=== PATIENT | female | born 1965 | race Caucasian/White ===

== ENCOUNTER → 2018-05-16 14:38 | Outpatient (CLI) | payer OTHER, SELFPAY ==
[2018-05-16 15:24] LABS: Add Manual Diff / Slide Review NO; Basophils Percent Auto 0.6 % (0-2); Eosinophils Percent Auto 3.1 % (2-4); Hemoglobin 13.5 g/dL (12.0-16.0); Lymphocytes Percent Auto 21.2 % (25-40); Mean Corpuscular HGB Conc 33.6 % (30-36); Mean Corpuscular Hemoglobin 30.4 PG (26-34); Mean Corpuscular Volume 90.5 fL (80-100); Monocytes Percent Auto 12.5 % (3-14); Neutrophils Absolute Auto 3700 /uL (3000-5900); Neutrophils Percent Auto 62.6 % (50-75); Platelet Count 233 X10^3/uL (150-400); Red Blood Cell Count 4.42 X10^6/uL (4.0-5.2); Red Cell Distribution Width 12.9 % (11.6-14.8); White Blood Cell Count 5.9 X10^3/uL (4.5-11.0)
[2018-05-16 15:27] LABS: INR 1.2 (0.9-1.3); Prothrombin Time 13.2 SECONDS (10.1-12.7)
[2018-05-16 15:53] LABS: Erythrocyte Sedimentation Rate 15 MM/HR (0-20)
[2018-05-16 16:05] LABS: C-Reactive Protein Quant 1.3 mg/dL (<1.0)
== END ==
PROVIDERS: Visit Provider Physician Assistant
DX: M25.50 Pain in unspecified joint (principal); K06.8 Other specified disorders of gingiva and edentulous alveolar ridge
CPT/HCPCS: 36415; 85025; 85610; 85651; 86140

== ENCOUNTER → 2018-05-24 10:11 | Outpatient (CLI) | payer OTHER, SELFPAY ==
[2018-05-24 10:48] LABS: INR 1.2 (0.9-1.3); Prothrombin Time 13.5 SECONDS (10.1-12.7)
[2018-05-24 11:49] LABS: Alanine Aminotransferase 34 IU/L (9-52); Albumin 4.4 g/dL (3.5-5.0); Albumin Globulin Ratio 1.8 (1.0-2.8); Alkaline Phosphatase 111 U/L (38-126); Aspartate Aminotransferase 30 IU/L (14-36); Bilirubin Total 0.7 mg/dL (0.2-1.3); Bilirubin Unconjugated 0.5 mg/dL (0.0-1.1); Globulin 2.5 g/dL (1.7-4.1); HEMOLYSIS < 15 (0-50); Total Protein 6.9 g/dL (6.3-8.2)
[2018-05-27 10:15] LABS: Hepatitis A Antibody IgM NONREACTIVE; Hepatitis Acute Panel Interp 0.04; Hepatitis B Core Antibody IgM NONREACTIVE; Hepatitis B Surface Antigen NONREACTIVE; Hepatitis C Antibody NONREACTIVE
== END ==
PROVIDERS: PCP Family Medicine; Visit Provider Family Medicine
DX: R94.5 Abnormal results of liver function studies (principal); R79.1 Abnormal coagulation profile
CPT/HCPCS: 36415; 80074; 80076; 85610

== ENCOUNTER → 2018-06-03 09:15 | Outpatient (CLI) | payer OTHER, SELFPAY ==
--- NOTE | 2018-06-03 09:16 | DI.US.S_ITS ---
PROCEDURE: US ABDOMEN COMPLETE INDICATIONS: ELEVATED LIVER ENZYMES TECHNIQUE: Real-time scanning was performed of the abdominal and retroperitoneal organs, with image documentation. COMPARISON: [facility], [place], ABDOMEN COMPLETE, 07/17/2017, 7:14. FINDINGS: Liver: Liver measures 14.0 cm in diameter. There is diffusely increased hepatic echogenicity. Gallbladder: The gallbladder is surgically absent. Biliary ducts: Intrahepatic bile ducts are non-dilated. Extrahepatic bile duct caliber measures 3 mm, within normal limits. Pancreas: Visualized portions of the pancreas are sonographically unremarkable. The pancreatic tail and body were not well seen on this exam. Spleen: Spleen is normal in size and homogeneous in echotexture when present measuring 12.2 cm in diameter). Kidneys: Kidneys are normal in size and echotexture. Right kidney measures 9.8 cm long; left kidney measures 10.0 cm long. No hydronephrosis or nephrolithiasis. No solid masses. Aorta: Visualized aorta is normal in caliber at less than 3 cm. The proximal abdominal aorta measures 1.7 cm. The mid abdominal aorta measures 1.6 cm. The distal abdominal aorta measures 1.5 cm. Iliacs: Imaged proximal common iliac arteries are normal in caliber with the right common iliac artery measuring 1.0 cm and the left common iliac artery measures 1.0 cm. IVC: Intrahepatic inferior vena cava is patent. Miscellaneous: No free abdominal fluid. IMPRESSION: Diffusely increased hepatic echogenicity, which can be seen with hepatic steatosis, hepatic fibrosis/cirrhosis, and/or hepatitis. Dictated by: Ismael Pradhan M.D. on 06/03/2018 at 10:16 Approved by: Ismael Pradhan M.D. on 06/03/2018 at 10:22
== END ==
PROVIDERS: PCP Family Medicine; Visit Provider Family Medicine
DX: R74.8 Abnormal levels of other serum enzymes (principal); Z90.49 Acquired absence of other specified parts of digestive tract
CPT/HCPCS: 76700

== ENCOUNTER → 2019-04-10 09:14 | Outpatient (CLI) | payer OTHER, SELFPAY ==
--- NOTE | 2019-04-10 09:18 | DI.US.S_ITS ---
PROCEDURE: US EXTREMITY NONVASC LOWER LT INDICATIONS: FALL FROM LADDER TECHNIQUE: Real-time scanning was performed of the left lower leg, with image documentation. COMPARISON: None. FINDINGS: There is diffuse subcutaneous soft tissue edema involving the posterolateral aspect of the left lower leg correlating with area of clinical concern and trauma. There is a avascular, hypoechoic collection measuring 6.9 x 5.4 x 0.5 cm in size at the subcutaneous fat/muscular fascia interface. This likely represents a hematoma. No vascular or solid mass lesion identified. IMPRESSION: Diffuse postero-lateral left lower leg soft tissue edema with underlying fluid collection likely representing a hematoma given history of trauma. Recommend continued clinical surveillance with repeat imaging as needed. Dictated by: Alvaro Juárez M.D. on 04/10/2019 at 10:21 Approved by: Alvaro Juárez M.D. on 04/10/2019 at 10:30
--- NOTE | 2019-04-10 09:18 | DI.RAD.S_ITS ---
PROCEDURE: XR SACRUM COCCYX MIN 2V INDICATIONS: Fall from ladder TECHNIQUE: 3 views of the sacrum and coccyx acquired. COMPARISON: None. FINDINGS: Bones: No fractures or dislocations. No suspicious bony lesions. Soft tissues: Visualized bowel gas pattern is normal. No suspicious soft tissue densities. IMPRESSION: No trauma found. Dictated by: Dereck Cuevas M.D. on 04/10/2019 at 10:12 Approved by: Dereck Cuevas M.D. on 04/10/2019 at 10:13
--- NOTE | 2019-04-10 09:18 | DI.US.S_ITS ---
PROCEDURE: US ABDOMEN LIMITED INDICATIONS: Persistent epigastric pain after fall 1.5 weeks ago. Evaluate for herniation. TECHNIQUE: Real-time focused scanning was performed of the abdomen, with image documentation. COMPARISON: None. FINDINGS: There is an area of mild prominence of the omentum beneath the peritoneal fascial plane at the midline below the epigastrium. In this area no hematoma is suspected IMPRESSION: Mild edema within the omentum is the likely cause for the mild prominence of the omentum in the setting of recent trauma exactly to that area. No body wall herniation is associated. Dictated by: Dereck Cuevas M.D. on 04/10/2019 at 14:24 Approved by: Dereck Cuevas M.D. on 04/10/2019 at 14:25
== END ==
PROVIDERS: Family Provider Family Medicine; PCP Family Medicine; Visit Provider Physician Assistant
DX: S80.10XA Contusion of unspecified lower leg, initial encounter (principal); M79.662 Pain in left lower leg; R10.13 Epigastric pain; R60.0 Localized edema; W11.XXXA Fall on and from ladder, initial encounter
CPT/HCPCS: 72220; 76705; 76882

== ENCOUNTER → 2021-12-08 09:30 | Outpatient (CLI) | payer BC, SELFPAY ==
[2021-12-08 10:34] LABS: Add Manual Diff / Slide Review NO; Basophils Absolute Auto 100 /uL (0-100); Basophils Percent Auto 1.1 % (0-2); Eosinophils Absolute Auto 200 /uL (0-450); Eosinophils Percent Auto 4.5 % (2-4); Hemoglobin 13.4 g/dL (12.0-16.0); Lymphocytes Absolute Auto 1700 /uL (1100-4500); Lymphocytes Percent Auto 33.1 % (25-40); Mean Corpuscular HGB Conc 34.2 % (30-36); Mean Corpuscular Volume 90.5 fL (80-100); Monocytes Absolute Auto 400 /uL (0-900); Monocytes Percent Auto 7.5 % (3-14); Neutrophils Absolute Auto 2700 /uL (1500-7000); Neutrophils Percent Auto 53.8 % (50-75); Platelet Count 264 X10^3/uL (150-400); Red Blood Cell Count 4.31 X10^6/uL (4.0-5.2); Red Cell Distribution Width 12.9 % (11.6-14.8); White Blood Cell Count 5.1 X10^3/uL (4.5-11.0)
[2021-12-08 11:19] LABS: Thyroid Stimulating Hormone 2.07 uIU/mL (0.47-4.68)
== END ==
PROVIDERS: Family Provider Family Medicine; Referring Provider Physician Assistant Medical; Visit Provider Physician Assistant Medical
DX: Z00.00 Encounter for general adult medical examination without abnormal findings (principal); Z13.0 Encounter for screening for diseases of the blood and blood-forming organs and certain disorders involving the immune mechanism; Z13.29 Encounter for screening for other suspected endocrine disorder
CPT/HCPCS: 36415; 84443; 85025

== ENCOUNTER → 2023-09-21 07:54 | Outpatient (CLI) | payer OTHER, SELFPAY | PROVIDERS: Family Provider Family Medicine; Visit Provider Student in an Organized Health Care Education/Training Program | DX: R10.9 Unspecified abdominal pain (principal) | CPT/HCPCS: 87077; 87086; 87186 ==